=== PATIENT | female | born 1935 | race Caucasian/White ===

== ENCOUNTER 2020-09-10 10:08 | Outpatient (CLI) | payer MEDICARE, SELFPAY ==
--- NOTE | 2020-09-10 10:11 | ECG_ITS ---
Measurements Intervals Marks Rate: 80 P: 79 SC: 188 QRS: 13 QRSD: 99 T: 66 QT: 356 QTc: 413 Interpretive Statements SINUS RHYTHM BORDERLINE R WAVE PROGRESSION, ANTERIOR LEADS BASELINE ARTIFACT- I, II, III, AVR, AVL, AVF BORDERLINE ECG Electronically Signed On 09-10-2020 12:01:30 [employer] by Avery Dewey D.O.
== END 2020-09-10 10:09 | disposition home or self-care (01) ==
PROVIDERS: PCP Emergency Medicine; Visit Provider Urology
DX: Z01.818 Encounter for other preprocedural examination (principal); N36.42 Intrinsic sphincter deficiency (ISD); I10 Essential (primary) hypertension
CPT/HCPCS: 87086; 93005

== ENCOUNTER 2020-10-21 12:57 | Outpatient (CLI) | payer MEDICARE, SELFPAY | END 2020-10-21 12:58 | disposition home or self-care (01) | LOC: ANHSURGERY 13:00 | PROVIDERS: PCP Emergency Medicine; Visit Provider Urology | DX: Z01.812 Encounter for preprocedural laboratory examination (principal); N36.42 Intrinsic sphincter deficiency (ISD) | CPT/HCPCS: 87086; 87088 ==

== ENCOUNTER → 2020-10-25 00:43 | Outpatient (CLI) | payer MEDICARE, SELFPAY ==
[2020-10-25 21:02] LABS: SARS-CoV-2 RNA PCR Negative
== END ==
PROVIDERS: PCP Emergency Medicine; Visit Provider Urology
DX: Z01.812 Encounter for preprocedural laboratory examination (principal); Z20.822 Contact with and (suspected) exposure to COVID-19
CPT/HCPCS: C9803; U0003; U0005

== ENCOUNTER 2020-10-28 00:29 | Day surgery (SDC) | payer MEDICARE, SELFPAY ==
[2020-09-05 13:04] VITALS: BMI 24.2
[2020-10-14 14:52] VITALS: BMI 24.2
--- NOTE | 2020-10-25 15:32 | P.HP_ITS ---
H&P: HPI History of Present Illness Date/Time: 10/25/20 15:32 85 yo with ISD/AMEYA Chief Complaint: ISD Review of Systems Review of Systems: All systems reviewed & are unremarkable except as noted in HPI and below [facility] Social History Social History Smoking status: Never smoker Second hand tobacco smoke exposure: No Alcohol intake: current Substance use: never Substance use type: does not use Spiritual care concerns: No Meds Home Medications and Allergies Home Medications Medication Instructions Recorded Confirmed Type B.breve-L.acid-L.rham-S.thermo 1 tablet PO DAILY 09/05/20 10/14/20 History [Probiotic] alprazolam 0.25 mg PO PRN PRN 09/05/20 10/14/20 History amlodipine 5 mg PO QAM 09/05/20 10/14/20 History aspirin [Adult Low Dose Aspirin] 81 mg PO DAILY 09/05/20 10/14/20 History docusate sodium [Stool Softener] 50 mg PO DAILY 09/05/20 10/14/20 History duloxetine 60 mg PO QAM 09/05/20 10/14/20 History levothyroxine 50 mcg PO DAILY 09/05/20 10/14/20 History lisinopril 20 mg PO DAILY 09/05/20 10/14/20 History multivitamin,ts-aqdv-oabsxaty 1 tablet PO DAILY 09/05/20 10/14/20 History [Complete Multivitamin] omeprazole 20 mg PO DAILY 09/05/20 10/14/20 History zolpidem 5 mg PO HS 10/14/20 10/14/20 History Allergies Allergy/AdvReac Type Severity Reaction Status Date / Time No Known Allergies Allergy Verified 10/14/20 14:51 Exam Const: General: cooperative HENMT: Head: normal to inspection Eyes: General: appearance normal, both eyes and all related structures Resp: Effort & Inspection: normal respiratory effort and able to speak in complete sentences GI: Inspection: normal to inspection Skin: General skin exam: normal color Assessment and Plan Assessment and plan (1) Intrinsic sphincter deficiency (ISD): Code(s): N36.42 - Intrinsic sphincter deficiency (ISD) Status: Acute Assessment and Plan: cysto/bulking agent
[2020-10-28 06:12] VITALS: BP 145/62; PULSE 92; RESP 14; TEMP 36.5; O2SAT 99
--- NOTE | 2020-10-28 06:42 | WPDANESEPPF ---
Anes - Initial Pre Proc Eval Procedure: Operation Date: 10/28/20 07:30 Proposed Procedures p Cystoscopy with Bulking Agent - Casey Reynolds MD Date/Time: 10/28/20 06:42 Surgeon: Casey Reynolds MD Pre Op Diagnosis: intrinsic sphincter defic Patient Data Age: 85 Gender: F Height: 1.68 m Weight: 69 kg Last Vital Signs Temp 36.5 C 10/28/20 06:12 Pulse 92 10/28/20 06:12 Resp 14 10/28/20 06:12 BP 145/62 H 10/28/20 06:12 Pulse Ox 99 10/28/20 06:12 Allergies Allergy/AdvReac Type Severity Reaction Status Date / Time No Known Allergies Allergy Verified 10/28/20 06:11 Home Medications Medication Instructions Recorded Confirmed Type B.breve-L.acid-L.rham-S.thermo 1 tablet PO DAILY 09/05/20 10/28/20 History [Probiotic] alprazolam 0.25 mg PO PRN PRN 09/05/20 10/28/20 History amlodipine 5 mg PO QAM 09/05/20 10/28/20 History aspirin [Adult Low Dose Aspirin] 81 mg PO DAILY 09/05/20 10/28/20 History docusate sodium [Stool Softener] 50 mg PO DAILY 09/05/20 10/28/20 History duloxetine 60 mg PO QAM 09/05/20 10/28/20 History levothyroxine 50 mcg PO DAILY 09/05/20 10/28/20 History lisinopril 20 mg PO DAILY 09/05/20 10/28/20 History multivitamin,ya-twhd-rnfnbkgd 1 tablet PO DAILY 09/05/20 10/28/20 History [Complete Multivitamin] omeprazole 20 mg PO DAILY 09/05/20 10/28/20 History zolpidem 5 mg PO HS 10/14/20 10/28/20 History Patient hx anesthesia problems: none Family hx anesthesia problems: none PMFSH Past Medical History Medical History (Updated 10/28/20 @ 06:44 by Ben Douglas DO) Anxiety Depression GERD (gastroesophageal reflux disease) Hypertension Hypothyroidism Osteoarthritis Walker as ambulation aid Surgical History Surgical History (Updated 10/28/20 @ 06:44 by Ben Douglas DO) History of appendectomy History of hysterectomy Social History Social History Smoking status: Never smoker Second hand tobacco smoke exposure: No Alcohol intake: current Alcohol use details: STATES ONE DRINK/MONTH Substance use: never Substance use type: does not use Living arrangements: with family Spiritual care concerns: No Anes - Eval Final PreProcedure Day of Procedure 10/28/20 06:42 Patient weight: normal Heart: regular rate and rhythm Lungs: clear to auscultation and normal air movement Airway: Mallampati scale class II Neurological: alert and oriented Last oral intake: >/= 8 hours ASA classification: III Emergent: no Anesthetic plan: proceed Anesthesia type and monitoring: general GIVS and standard monitoring Informed Consent: The patient's anesthetic plan and its attendant risks and benefits were discussed with the patient/family/POA. Questions were solicited and answers provided to the satisfaction of the patient/family/POA.
[2020-10-28] MEDS: LACTATED RINGERS 1,000 ML 30 ML IV CONT (06:52)
--- NOTE | 2020-10-28 07:12 | WPDHPUPDATE1 ---
History and Physical Update Update Date/Time: 10/28/20 07:12 History and Physical has been reviewed, including an updated exam of the patient. There are NO changes in the patient's condition. Risks, benefits, and alternatives have been discussed and questions answered. Patient agrees to proceed with procedure.
[2020-10-28] MEDS: ceFAZolin 2 GM/D5W 50 ML 2 GM/50 ML BAG IVPB (07:52)
[2020-10-28] MEDS: LIDOCAINE HCL 2% GEL UROJET 10 ML PKG MUCOUS MEM (08:12)
--- NOTE | 2020-10-28 08:14 | P.OP_ITS ---
Procedure Note - Detailed Date of procedure: 10/28/20 Pre-op diagnosis: intrinsic sphincter defic Intrinsic sphincter deficiency Post-op diagnosis: same Procedure performed: Cystoscopy with implantation of suburethral implant material [id number] Description of procedure: She was correctly identified and informed consent was obtained. She was brought to the operating room. She was given mac anesthesia. She was placed in the dorsal lithotomy position. She was prepped and draped in a sterile fashion. A time-out performed. Cystoscopy revealed no tumors in the bladder and an open urethra consistent with intrinsic sphincter deficiency. I injected the bulking agent into the urethra at the 10:00 a.m. to o'clock and 6 o'clock position. There is excellent bulking effect. Her bladder was drained with a 12 [place] red rubber catheter. She was awakened and transferred to the PACU in stable condition. Implants: Macroplastique Anesthesia: MAC Surgeon: Casey Reynolds MD Drains: No Packing: No Pathology: none sent Complications: No immediate complications Condition: stable Disposition: PACU
[2020-10-28 08:18] VITALS: BP 106/59; PULSE 55; RESP 12; O2SAT 98
[2020-10-28 08:45] VITALS: BP 136/50; PULSE 77; RESP 12; O2SAT 100
== END 2020-10-28 09:40 | disposition home or self-care (01) ==
PROVIDERS: PCP Emergency Medicine; Visit Provider Urology
PROC: 3E0K8GC Introduction of Other Therapeutic Substance into Genitourinary Tract, Via Natural or Artificial Opening Endoscopic (ICD-10-PCS; CPT 51715; principal; 2020-10-28 07:30)
DX: N36.42 Intrinsic sphincter deficiency (ISD) (principal); I10 Essential (primary) hypertension; E03.9 Hypothyroidism, unspecified; K21.9 Gastro-esophageal reflux disease without esophagitis; M19.90 Unspecified osteoarthritis, unspecified site; F41.8 Other specified anxiety disorders; Z79.82 Long term (current) use of aspirin; Z79.899 Other long term (current) drug therapy
CPT/HCPCS: 51715; 87086; 87088; A9270; C9803; J0690; J2704; J7120; L8606; U0003; U0005